=== PATIENT | male | born 1980 | race Caucasian/White ===

== ENCOUNTER 2016-12-25 15:47 | Emergency (ER) | payer OTHER ==
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
[2016-12-25 16:25] LABS: ABSOLUTE BASOPHIL COUNT 0.1 /CUMM (0.0-0.2); ABSOLUTE EOSINOPHIL COUNT 0.3 /CUMM (0.0-0.7); ABSOLUTE GRANULOCYTE CT 9.1 /CUMM (1.4-6.5); ABSOLUTE LYMPH COUNT 3.2 /CUMM (1.2-3.4); ABSOLUTE MONOCYTE COUNT 1.1 /CUMM (0.10-0.60); BASOPHIL % 0.4 % (0.0-2.0); GRANULOCYTE % 66.1 % (42.2-75.2); HEMATOCRIT 47.4 % (42-52); MEAN CORPUSCULAR HGB 30.5 PG (27.0-31.0); MEAN CORPUSCULAR HGB CONC 33.2 G/DL (33.0-37.0); MEAN CORPUSCULAR VOLUME 91.9 FL (80.0-94.0); MEAN PLATELET VOLUME 10.7 FL (7.4-10.4); PLATELET COUNT 198 /CUMM (130-400); RBC DISTRIBUTION WIDTH 13.7 % (11.5-14.5); RED BLOOD CELL CT 5.16 /CUMM (4.70-6.10); WHITE BLOOD CELL COUNT 13.8 /CUMM (4.8-10.8)
[2016-12-25 16:38] LABS: PT 16.6 SEC (9.4-12.5); PTT 43 SEC (25-37)
[2016-12-25] MEDS ORDERED: BACLOFEN20 M1 PO (16:40)
[2016-12-25] MEDS ORDERED: ATORVASTATIN CA20 M1 PO (16:40)
[2016-12-25] MEDS ORDERED: METOPROLOL TART25 M1 PO (16:41)
[2016-12-25] MEDS ORDERED: PANTOPRAZOLE SO40 M1 PO (16:41)
[2016-12-25] MEDS ORDERED: DANTROLENE SOD PO (16:41)
[2016-12-25] MEDS ORDERED: METAXALONE800 M1 PO (16:41)
[2016-12-25] MEDS ORDERED: DETROL LA2 M1 PO (16:42)
[2016-12-25] MEDS ORDERED: VENLAFAXINE HCL75 M1 PO (16:42)
[2016-12-25] MEDS ORDERED: MAGNESIUM400 M1 PO (16:43)
[2016-12-25] MEDS ORDERED: VITAMIN D2000 UNI1 PO (16:43)
[2016-12-25] MEDS ORDERED: NUCYNTA PO (16:43)
[2016-12-25] MEDS ORDERED: LYRICA200 M1 PO (16:44)
[2016-12-25] MEDS ORDERED: TYLENOL325 M1 PO (16:45)
[2016-12-25] MEDS ORDERED: XARELTO20 M2 PO (16:45)
[2016-12-25] MEDS ORDERED: CRANBERRY500 MG PO (16:45)
[2016-12-25] MEDS ORDERED: ENEMA133 M1 PR (16:46)
[2016-12-25] MEDS ORDERED: PROBIOTIC1 EACH PO (16:47)
[2016-12-25 17:42] VITALS: BP 103/61
== END 2016-12-25 18:00 ==
LOC: ERH 15:47
PROVIDERS: Emergency Medicine
DX: R19.5 Other fecal abnormalities (principal)

== ENCOUNTER 2017-01-19 20:59 | Inpatient (IN) | payer OTHER ==
[~2017-01-19] VITALS: Ht 172.7 cm; Wt 145.2 kg
[~2017-01-19 20:59] MED LIST: ATORVASTATIN CA20 M1 PO; BACLOFEN20 M1 PO; CRANBERRY500 MG PO; DANTROLENE SOD PO; DETROL LA2 M1 PO; ENEMA133 M1 PR; LYRICA200 M1 PO; MAGNESIUM400 M1 PO; METAXALONE800 M1 PO; METOPROLOL TART25 M1 PO; NUCYNTA PO; PANTOPRAZOLE SO40 M1 PO; PROBIOTIC1 EACH PO; TYLENOL325 M1 PO; VENLAFAXINE HCL75 M1 PO; VITAMIN D2000 UNI1 PO; XARELTO20 M2 PO
--- NOTE | 2017-01-19 21:06 | ED AMS/SEIZURE/WEAK/DIZZY ---
History of Present Illness General Chief Complaint: General Adult Stated Complaint: BIBA, GENERAL WEAKNESS Source: patient, family, old records, EMS Exam Limitations: no limitations Vital Signs & Intake/Output Vital Signs & Intake/Output Vital Signs Date Time Temp Pulse Resp B/P B/P Pulse O2 O2 Flow FiO2 Mean Ox Delivery Rate 01/19 2310 101.2 01/19 2225 101.2 95 16 103/67 95 Room Air 01/19 2215 99 01/19 2135 104.0 01/19 2107 104.0 96 16 114/69 95 Room Air ED Intake and Output 01/20 0000 01/19 1200 Intake Total Output Total 100 Balance -100 Output, Urine 100 Patient 320 lb Weight Weight Reported by Patient Measurement Method Allergies Coded Allergies: NSAIDS (Non-Steroidal Anti-Inflamma (CONTRAINDICATED ON XARELTO 12/25/16) bupivacaine (UNKNOWN 12/25/16) codeine (ITCHY 12/25/16) CODEINE-ITCHY Reconcile Medications Atorvastatin Calcium 20 MG TABLET 1 TAB PO DAILY HPL (Reported) Baclofen 20 MG TABLET 1 TAB PO TID MUSCLE RELAXER (Reported) Cholecalciferol (Vitamin D3) (Vitamin D3) 1,000 UNIT CAPSULE 2 TAB PO DAILY SUPPLEMENT (Reported) Cranberry Extract (Cranberry) (Unknown Strength) CAPSULE (Unknown Dose) UTI ( Reported) Dantrolene Sodium (Unknown Strength) CAPSULE (Unknown Dose) MUSCLE SPASMS ( Reported) Magnesium Hydroxide (Milk Of Magnesia) (Unknown Strength) ORAL.SUSP (Unknown Dose) PRN PRN CONSTIPATION (Reported) Magnesium Oxide (Magnesium) (Unknown Strength) CAPSULE (Unknown Dose) SUPPLEMENT (Reported) Metaxalone (Skelaxin) (Unknown Strength) TABLET (Unknown Dose) TID MUSCLE SPASMS (Reported) Metoprolol Tartrate (Unknown Strength) TABLET (Unknown Dose) HTN (Reported) Mirabegron (Myrbetriq) 50 MG TAB.ER.24H 1 TAB PO DAILY URINARY (Reported) Oxybutynin Chloride (Ditropan XL) (Unknown Strength) TAB.ER.24 (Unknown Dose) PO DAILY BLADDER (Reported) Pregabalin (Lyrica) (Unknown Strength) CAPSULE (Unknown Dose) PAIN (Reported) Rivaroxaban (Xarelto) 20 MG TABLET 1 TAB PO DAILY HX CLOTS (Reported) with food Saccharomyces Boulardii (Probiotic) (Unknown Strength) CAPSULE (Unknown Dose) SUPPLEMENT (Reported) Tapentadol HCl (Nucynta) 75 MG TABLET 1 TAB PO TID PAIN (Reported) Venlafaxine HCl (Venlafaxine HCl ER) 75 MG CAP.ER.24H 1 CAP PO DAILY MENTAL HEALTH (Reported) Triage Nurses Notes Reviewed? 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 Patient states that over the past day or so he is gradually become more weak. He reports he has noticed chills sweats and feels very cold. He denies any pain. He has a chronic indwelling suprapubic catheter. He reports that he took 2 Tylenol earlier in the day without any relief. He reports that he feels a little bit of dizziness with movement of the head. No coughing, shortness of breath, hemoptysis, excessive lower extremity edema, abdominal pain, back pain or any other associated symptoms. (FRANCESCO TORRES PA-C) Past History Travel History Traveled to [place] past 21 day No Medical History Any Pertinent Medical History? see below for history Neurological: tbi, paraplegia SPINAL ABSCESS EENT: NONE Cardiovascular: hypertension, hyperlipidemia Respiratory: NONE Gastrointestinal: GERD Hepatic: NONE Renal: INDWELLING SUPRAPUBIC APARICIO Musculoskeletal: PARALYSIS UMBILICUS DOWN Psychiatric: depression Endocrine: NONE Blood Disorders: DVT Surgical History Surgical History: non-contributory Psychosocial History What is your primary language Croatian Family History Hx Contributory? Yes (FRANCESCO TORRES PA-C) Review of Systems Review of Systems Constitutional: Reports: chills, diaphoresis, fever, weakness. EENTM: Reports: no symptoms. Respiratory: Reports: no symptoms. Cardiovascular: Reports: no symptoms. GI: Reports: no symptoms. Genitourinary: Reports: no symptoms. Musculoskeletal: Reports: no symptoms. Skin: Reports: no symptoms. Neurological/Psychological: Reports: no symptoms. Hematologic/Endocrine: Reports: no symptoms. Immunologic/Allergic: Reports: no symptoms. All Other Systems: Reviewed and Negative (BLACK PA-C,FRANCESCO) Physical Exam Physical Exam General Appearance: well developed/nourished, no apparent distress, alert, awake , obese Skin: intact, normal color, warm/dry Comments: General: Hemodynamically stable. Afebrile. Well-developed well-nourished person in no acute distress. Head: Atraumatic, normocephalic Eyes: EOMI bilaterally, PERRLA, conjunctiva are not injected, no discharge, no nystagmus, fundus grossly normal bilaterally Nose: Atraumatic, no rhinorrhea, mucosa is not erythematous, no epistaxis. Sinuses are non-tender Ears: TM pearly chau color bilaterally, external canal is clear, no discharge, hearing is normal Mouth: Appropriate dentition, no gingival bleeding, moist mucus membranes, no oral lesions, tonsils not erythematous or enlarged and free of exudate. Uvula rises midline. Neck: Supple, full active ROM, no lymphadenopathy, no midline tenderness to palpation, no thyromegaly, no tracheal deviation. Back: Non-tender, full active ROM, no scoliosis, no CVA tenderness Cardiovascular: regular rate and rhythm, no murmurs, rubs, or gallops. No JVD Respiratory: Chest is nontender. Regular respiratory rate and effort. No accessory muscle use. Lungs clear to auscultation bilaterally. Abdomen: Soft, non-tender, non-distended, no organomegaly. No rebound tenderness or guarding. Normoactive bowel sounds. Extremities: No edema. No gross deformities. No joint swelling. No calf swelling or tenderness. Patient is paralyzed from the umbilicus down. Full active and passive ROM of bilateral upper extremities. Strength 5/5 in upper and lower extremities. Peripheral pulses 2+ bilaterally, Patellar DTR 2+ Neuro: No confusion. Motor and sensory function is intact. Appropriate gait. Cerebellar function intact. Skin: Warm and dry. Appropriate turgor. No lesions or bruising. No appreciable rash on exposed skin. No evidence of cellulitis or pressure ulcers. Suprapubic catheter site does not show any signs of infection. No erythema discharge no pain with palpation. Core Measures ACS in differential dx? No CVA/TIA Diagnosis: No Severe Sepsis Present: No Septic Shock Present: No (BLACK PA-C,FRANCESCO) Progress Differential Diagnosis: anemia, dehydration, electrolyte imbalance, hypoglycemia , meningitis, pneumonia, UTI/pyelo, epidural abscess Plan of Care: Orders Procedure Date/time Status Patient Data 01/20 203 Active Add-on Test (ER Only) 01/19 2258 Active CULTURE,URINE 01/19 2130 Active Telemetry/Mechanical Facilities Technician 01/19 2123 Active D-DIMER 01/19 2123 Complete BLOOD CULTURE 01/19 2121 Active URINALYSIS 01/20 2120 Complete LACTIC ACID 01/20 2120 Complete C-REACTIVE PROTEIN 01/20 2120 Complete COMPREHENSIVE METABOLIC PANEL 01/20 2120 Complete CBC WITHOUT DIFFERENTIAL 01/20 2120 Complete Laboratory Tests 01/20/17 0020: Lactic Acid Cancelled 01/19/172224: Anion Gap 12, Estimated GFR > 60, BUN/Creatinine Ratio 14.0, Glucose 112 H, Lactic Acid 1.1, Calcium 9.0, Total Bilirubin 1.1, AST 15 L, ALT 33, Alkaline Phosphatase 85, C-Reactive Prot, Quant > 9.0 H, Total Protein 6.3, Albumin 3.8, Globulin 2.5, Albumin/Globulin Ratio 1.5, D-Dimer High Sensitivty 360 H, CBC w Diff MAN DIFF ORDERED, RBC 5.16, MCV 90.2, MCH 30.1, RDW 13.7, MPV 10.4, Gran % 84.1 H, Lymphocytes % 9.0 L, Monocytes % 6.6, Eosinophils % 0.1, Basophils % 0.2, Absolute Granulocytes 19.4 H, Segmented Neutrophils 90 H, Band Neutrophils 1, Absolute Lymphocytes 2.1, Lymphocytes 7 L, Monocytes 2, Absolute Monocytes 1.5 H, Absolute Eosinophils 0, Absolute Basophils 0.1, Platelet Estimate ADEQUATE, Normocytic RBCs VERIFIED, Normochromic RBCs VERIFIED, PUBS MCHC 33.3, Fld Total RBCs Counted 100 01/19/172129: Urinalysis MANY H, Urine Color YEL, Urine Clarity HAZY H, Urine pH 6.0, Ur Specific [place] 1.020, Urine Protein 100 H, Urine Ketones NEG, Urine Nitrite NEG, Urine Bilirubin NEG, Urine Urobilinogen 0.2, Ur Leukocyte Esterase LARGE H , Ur Microscopic SEDIMENT EXAMINED, Urine RBC 25-50 H, Urine WBC > 75 H, Ur Epithelial Cells FEW, Urine Bacteria MANY H, Urine Hemoglobin LARGE H, Urine Glucose NEG Microbiology 01/19 2255 BLOOD: Blood Culture - RECD 01/19 2225 BLOOD: Blood Culture - RECD 01/19 2130 URINE ROUT: Urine Culture - RECD 9 PM: Patient seen and evaluated. He currently has fever of 104. He'll be given a dose of IV Tylenol and a bolus of normal saline. He'll need a workup for fever of unknown origin with possible sepsis. 11 PM: Patient's fevers down to 101. He has a white count of 23 and urine is showing signs of infection however he does have a chronic superpubic catheter. No signs of pneumonia. No signs of skin infection. Lactate is not elevated. Blood pressure has remained within normal limits. He'll be treated empirically with ceftriaxone. Previous urine cultures have shown susceptibility to ceftriaxone. Patient will require admission for IV antibiotics and to rule out epidural abscess. Hospitalist is requesting patient have a contrast CT of the spine to rule out abscess before he is admitted. 1:45 AM: CT scan of the lumbar spine with contrast is negative for any signs of epidural abscess. Radiologist recommends follow-up MRI if clinical concern. Hospitalist paged. Reviewed all results of today's visit with patient. Patient reports feeling better. He has maintained a low-grade fever but blood pressure is stable. Patient will be admitted to [facility] for IV antibiotics and IV fluids. (BRIAN WALDROP,FRANCESCO) Diagnostic Imaging: Viewed by Me: Radiology Read, CT Scan. Discussed w/RAD: Radiology Read, CT Scan. Initial ED EKG: none Hand-Off Endorsed To: BERNARDINO RUBIO DO Endorsed Time: 145 Pending: other (admission ) Comments: PATIENT: REJI CAMPBELL PRESENT AGE: 36 PATIENT ACCOUNT NO: [id number] : 82 LOCATION: [facility] ORDERING PHYSICIAN: FRANCESCO TORRES PA-C SERVICE DATE: 01/19/17 EXAM TYPE: RAD - XRY-PORTABLE CHEST XRAY EXAMINATION: XR PORTABLE CHEST CLINICAL INFORMATION: Fever and weakness COMPARISON: None TECHNIQUE: Portable frontal view of the chest was obtained. FINDINGS: Heart size and pulmonary vascularity is within normal limits. The lungs are mildly hypoexpanded with slight elevation of the right diaphragm. No focal consolidation or atelectasis is appreciated. There is no pneumothorax or pleural effusion. No acute bony abnormality is seen. IMPRESSION: Hypoexpanded but clear lungs with no focal findings. DICTATED BY: CLEM MANUEL MD DATE/TIME DICTATED:01/19/172248 LEAD PRODUCER:MINA DATE/TIME TRANSCRIBED:01/19/172248 CONFIDENTIAL, DO NOT COPY WITHOUT APPROPRIATE AUTHORIZATION. <Electronically signed in Other Vendor System> SIGNED BY: CLEM MANUEL MD 01/19 5163 PATIENT: REJI CAMPBELL PRESENT AGE: 36 PATIENT ACCOUNT NO: [id number] : 82 LOCATION: [facility] ORDERING PHYSICIAN: FRANCESCO TORRES PA-C SERVICE DATE: 01/19/17 EXAM TYPE: CAT - CT LUMB SPINE W IV CONTRAST EXAMINATION: CT LUMBAR SPINE WITH CONTRAST CLINICAL INFORMATION: Fever. Elevated white blood cell count. History of epidural abscess. COMPARISON: None TECHNIQUE: Multidetector volumetric imaging was obtained through the lumbar spine following the intravenous administration of 95 Optiray 320 contrast material. Multiplanar reformatted images in coronal and sagittal orientations were submitted. DLP: 1694 mGy-cm FINDINGS: No fracture or malalignment. Vertebral body heights are normal. No spondylolisthesis. There is mild degenerative disc disease at the thoracolumbar junction which is characterized by loss of vertebral disc height, endplate osteophytes, and endplate irregularity. Moderate facet arthropathy is present at L3-4 bilaterally and at L4-5 on the left. No acute osseous abnormalities are identified. Imaged portions of the SI joints are unremarkable. No osseous lesions. Soft tissues immediately adjacent lumbar spine are unremarkable. No adjacent inflammatory changes are identified. Multiple hyperdense foci in both kidneys other correspond to early excretion of contrast material or renal calculi. No suspicious lesions are identified. Calcific atherosclerosis is present in the right common iliac and internal iliac artery. There is a small amount of nonspecific fat stranding in the retroperitoneal fascial planes, most notably anterior to the psoas muscles. The bladder wall is thickened, likely due in large part to the presence of the suprapubic catheter. There is mild shunting retroperitoneal fat stranding. There is mild enhancement in the epidural region within the lower lumbar spine in a pattern most compatible with normal enhancement of the epidural venous plexus. Sensitivity for abscesses is limited. No specific findings of epidural abscesses are identified. Central canal appears relatively patent without evidence of central canal stenoses. No appreciable neural foraminal impingement in the lumbar spine. A left foraminal osteophyte at T11-T12 produces at least mild to moderate narrowing of the left neural foramen. IMPRESSION: No specific findings of epidural abscess the lumbar spine, though CT is limited in sensitivity. Consider correlation with MRI if there is persistent clinical concern. Mild multilevel degenerative disc disease in the lumbar spine with more moderate facet arthropathy at L3-L4 and L4-L5. Mild fat stranding in the retroperitoneal fascial planes in the lower abdomen and pelvis. The bladder is inflamed with associated wall thickening, most likely related to the suprapubic catheter. Superimposed cystitis is possible. Otherwise, no clear cause of the retroperitoneal stranding are identified on these images. DICTATED BY: MEGAN VELEZ MD DATE/TIME DICTATED:01/20/17117 LEAD PRODUCER:MINA DATE/TIME TRANSCRIBED:01/20/17117 CONFIDENTIAL, DO NOT COPY WITHOUT APPROPRIATE AUTHORIZATION. (FRANCESCO TORRES PA-C) Departure Departure Disposition: STILL A PATIENT Condition: Stable Clinical Impression Primary Impression: UTI (urinary tract infection) due to urinary indwelling catheter Qualifiers: Indwelling urinary catheter type: indwelling urethral catheter Encounter type: initial encounter Qualified Codes: T83.511A - Infection and inflammatory reaction due to indwelling urethral catheter, initial encounter; N39.0 - Urinary tract infection, site not specified Referrals: BENSON HENDRIX MD (PCP/Family) Departure Forms: Customer Survey General Discharge Information Admission Note Spoke With: KWABENA DERAS MD Documentation of Exam: Documentation of any treatments & extenuating circumstances including Concerns Regarding Discharge (functional status, medication knowledge or non-compliance, living conditions, etc.) that warrant an admission rather than observation: [ Patient will require IV antibiotics, IV fluids, serial labs, evaluation for epidural abscess, follow-up on cultures, monitoring of vital signs] (FRANCESCO TORRES PA-C) PA/PET CARETAKER Co-Sign Statement Statement: ED Attending supervision documentation- [] I saw and evaluated the patient. I have also reviewed all the pertinent lab results and diagnostic results. I agree with the findings and the plan of care as documented in the PA's/PET CARETAKER's documentation. [X] I have reviewed the ED Record and agree with the PA's/PET CARETAKER's documentation. [] Additions or exceptions (if any) to the PAs/PET CARETAKER's note and plan are summarized below: [] (BERNARDINO RUBIO DO)
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
--- NOTE | 2017-01-19 22:31 | NUR ---
LABS DRAWN AND SENT BY THIS [facility]ST. BLUE,SST,LAV,WAITE, AND 1 BOTTLE OF 1ST SET OF CULTURES, PT A VERY DIFFICULT STICK
[2017-01-19 22:34] LABS: ABSOLUTE BASOPHIL COUNT 0.1 /CUMM (0.0-0.2); ABSOLUTE EOSINOPHIL COUNT 0 /CUMM (0.0-0.7); ABSOLUTE GRANULOCYTE CT 19.4 /CUMM (1.4-6.5); ABSOLUTE LYMPH COUNT 2.1 /CUMM (1.2-3.4); ABSOLUTE MONOCYTE COUNT 1.5 /CUMM (0.10-0.60); BASOPHIL % 0.2 % (0.0-2.0); EOSINOPHIL % 0.1 % (0-5); GRANULOCYTE % 84.1 % (42.2-75.2); HEMATOCRIT 46.6 % (42-52); MEAN CORPUSCULAR HGB 30.1 PG (27.0-31.0); MEAN CORPUSCULAR HGB CONC 33.3 G/DL (33.0-37.0); MEAN CORPUSCULAR VOLUME 90.2 FL (80.0-94.0); MEAN PLATELET VOLUME 10.4 FL (7.4-10.4); PLATELET COUNT 164 /CUMM (130-400); RBC DISTRIBUTION WIDTH 13.7 % (11.5-14.5); RED BLOOD CELL CT 5.16 /CUMM (4.70-6.10)
[2017-01-19] MEDS ORDERED: DITROPAN XL5 M1 PO (22:40)
[2017-01-19] MEDS ORDERED: VITAMIN D31000 UNI1 PO (22:40)
[2017-01-19] MEDS ORDERED: DANTROLENE SOD PO (22:41)
[2017-01-19] MEDS ORDERED: ATORVASTATIN CA20 M1 PO (22:41)
[2017-01-19] MEDS ORDERED: LYRICA200 M1 PO (22:42)
[2017-01-19] MEDS ORDERED: SKELAXIN800 M1 PO (22:42)
[2017-01-19] MEDS ORDERED: MYRBETRIQ50 M1 PO (22:42)
[2017-01-19] MEDS ORDERED: METOPROLOL TART25 M1 PO (22:43)
[2017-01-19] MEDS ORDERED: CRANBERRY200 MG PO (22:43)
[2017-01-19] MEDS ORDERED: PROBIOTIC250 MG PO (22:43)
[2017-01-19] MEDS ORDERED: MAGNESIUM400 M1 PO (22:44)
[2017-01-19] MEDS ORDERED: MILK OF MA400 MG/52 PO (22:44)
[2017-01-19] MEDS ORDERED: VENLAFAXINE HCL75 M1 PO (22:44)
[2017-01-19] MEDS ORDERED: NUCYNTA PO (22:44)
[2017-01-19] MEDS ORDERED: XARELTO20 M2 PO (22:45)
--- NOTE | 2017-01-19 22:56 | RADIOLOGY REPORT ---
EXAMINATION: XR PORTABLE CHEST CLINICAL INFORMATION: Fever and weakness COMPARISON: None TECHNIQUE: Portable frontal view of the chest was obtained. FINDINGS: Heart size and pulmonary vascularity is within normal limits. The lungs are mildly hypoexpanded with slight elevation of the right diaphragm. No focal consolidation or atelectasis is appreciated. There is no pneumothorax or pleural effusion. No acute bony abnormality is seen. IMPRESSION: Hypoexpanded but clear lungs with no focal findings.
--- NOTE | 2017-01-19 23:02 | NUR ---
2ND SET CULTURES ALONG WITH EXTRA RAINBOW (SST/LAV/BLUE/WAITE/PINK). LIGHTS LOW AND DOOR CLOSED AT PT REQUEST.
--- NOTE | 2017-01-19 23:10 | NUR ---
REPORT GIVEN TO CLOTH WEIGHER, ROCEPHIN UP, PT COMFORTABLE.
--- NOTE | 2017-01-19 23:12 | NUR ---
REPORT RECIEVED FROM JOSE G MUNIZ. PRIMARY CARE ASSUMED. PT REASSESSED, CLINICAL STATUS UNCHANGED.
--- NOTE | 2017-01-19 23:53 | NUR ---
PT REQUESTING WATER, INFORMED PT WILL NEED TO WAIT FOR CAT SCAN RESULTS PRIOR TO DRINKING/EATING
--- NOTE | 2017-01-20 00:42 | NUR ---
PT TO CT SCAN VIA STRETCHER
--- NOTE | 2017-01-20 01:05 | NUR ---
PT FROM CAT SCAN VIA STRETCHER
--- NOTE | 2017-01-20 01:37 | CT SCAN REPORT ---
EXAMINATION: CT LUMBAR SPINE WITH CONTRAST CLINICAL INFORMATION: Fever. Elevated white blood cell count. History of epidural abscess. COMPARISON: None TECHNIQUE: Multidetector volumetric imaging was obtained through the lumbar spine following the intravenous administration of 95 Optiray 320 contrast material. Multiplanar reformatted images in coronal and sagittal orientations were submitted. DLP: 1694 mGy-cm FINDINGS: No fracture or malalignment. Vertebral body heights are normal. No spondylolisthesis. There is mild degenerative disc disease at the thoracolumbar junction which is characterized by loss of vertebral disc height, endplate osteophytes, and endplate irregularity. Moderate facet arthropathy is present at L3-4 bilaterally and at L4-5 on the left. No acute osseous abnormalities are identified. Imaged portions of the SI joints are unremarkable. No osseous lesions. Soft tissues immediately adjacent lumbar spine are unremarkable. No adjacent inflammatory changes are identified. Multiple hyperdense foci in both kidneys other correspond to early excretion of contrast material or renal calculi. No suspicious lesions are identified. Calcific atherosclerosis is present in the right common iliac and internal iliac artery. There is a small amount of nonspecific fat stranding in the retroperitoneal fascial planes, most notably anterior to the psoas muscles. The bladder wall is thickened, likely due in large part to the presence of the suprapubic catheter. There is mild shunting retroperitoneal fat stranding. There is mild enhancement in the epidural region within the lower lumbar spine in a pattern most compatible with normal enhancement of the epidural venous plexus. Sensitivity for abscesses is limited. No specific findings of epidural abscesses are identified. Central canal appears relatively patent without evidence of central canal stenoses. No appreciable neural foraminal impingement in the lumbar spine. A left foraminal osteophyte at T11-T12 produces at least mild to moderate narrowing of the left neural foramen. IMPRESSION: No specific findings of epidural abscess the lumbar spine, though CT is limited in sensitivity. Consider correlation with MRI if there is persistent clinical concern. Mild multilevel degenerative disc disease in the lumbar spine with more moderate facet arthropathy at L3-L4 and L4-L5. Mild fat stranding in the retroperitoneal fascial planes in the lower abdomen and pelvis. The bladder is inflamed with associated wall thickening, most likely related to the suprapubic catheter. Superimposed cystitis is possible. Otherwise, no clear cause of the retroperitoneal stranding are identified on these images.
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
--- NOTE | 2017-01-20 02:27 | NUR ---
HOUSE STAFF AT BEDSIDE FOR PT EVALUATION
--- NOTE | 2017-01-20 03:08 | NUR ---
PTS HAS BED 230-2
--- NOTE | 2017-01-20 03:35 | NUR ---
REPORT GIVEN TO [address]SE [address]
[2017-01-20 04:20] VITALS: BP 112/68
--- NOTE | 2017-01-20 05:37 | Admission Certification ---
Admission Certification Certification Statement - As attending physician, I certify that at the time of - admission, based on clinical presentation, severity of - symptoms, need for further diagnostic testing and - therapeutic interventions, and risk of adverse outcomes - without in-hospital treatment, in my clinical assessment, - this patient requires an acute hospital stay for a minimum - of two nights or longer. I have also considered psychsocial - factors such as support system, advanced age, financial - issues, cognitive issues, and failed out-patient treatments, - past re-admission history, safety of patient, and lack of - compliance as applicable. Specific rationale supporting this admission is: Sepsis, acute complicated UTI in the setting of suprapubic catheter.
--- NOTE | 2017-01-20 06:02 | NUR ---
PT A&Ox3, TEMP 101.1, ADMINISTERED IV TYLENOL. OTHER VSS. PARALIZED UMBILICUS DOWN AND LIMITED MOBILITY OF LUE. REPORTS PAIN 7/10 NECK,SHOULDERS AND ARM, REFUSED PAIN MEDICATIONS S/P TYLENOL. SKIN INTACT. SUPRA PUBIC TUBE PLACED FEW MONTHS AGO R/T CHRONIC UTI's. ORIENTED TO FLOOR. CALL GRAY IN REACH. WILL CONTINUE TO MONITOR THIS SHIFT.
[2017-01-20 06:28] VITALS: BP 110/70
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
[2017-01-20 08:34] LABS: ABSOLUTE BASOPHIL COUNT 0 /CUMM (0.0-0.2); ABSOLUTE EOSINOPHIL COUNT 0 /CUMM (0.0-0.7); ABSOLUTE GRANULOCYTE CT 13.8 /CUMM (1.4-6.5); ABSOLUTE LYMPH COUNT 1.7 /CUMM (1.2-3.4); ABSOLUTE MONOCYTE COUNT 1.3 /CUMM (0.10-0.60); BASOPHIL % 0.2 % (0.0-2.0); EOSINOPHIL % 0.1 % (0-5); GRANULOCYTE % 82.1 % (42.2-75.2); HEMATOCRIT 42.5 % (42-52); MEAN CORPUSCULAR HGB 30.5 PG (27.0-31.0); MEAN CORPUSCULAR HGB CONC 33.8 G/DL (33.0-37.0); MEAN CORPUSCULAR VOLUME 90.2 FL (80.0-94.0); MEAN PLATELET VOLUME 10.9 FL (7.4-10.4); PLATELET COUNT 138 /CUMM (130-400); RBC DISTRIBUTION WIDTH 13.4 % (11.5-14.5); RED BLOOD CELL CT 4.71 /CUMM (4.70-6.10); WHITE BLOOD CELL COUNT 16.8 /CUMM (4.8-10.8)
--- NOTE | 2017-01-20 10:09 | NUR ---
PHYSICAL THERAPY: Pt WAS APPROACHED FOR PT EVAL TODAY. HE REPORTED THAT HE HAS AN AIDE AT HOME THAT ASSISTS HIM WELL HIS FATHER WHEN THE AIDE IS NOT PRESENT. TO GET IN/OUT OF BED A MECHANICAL LIFT IS USED. WHEN ASKED ABOUT RUE WEAKNESS, HE FEELS THIS IS THE SAME BEFORE AND DENIED THE NEED FOR AN OT CONSULT. Pt APPEARS TO BE AT BASELINE AND IS NOT APPROPRIATE FOR SKILLED PT AT THIS TIME. THANK YOU.
[2017-01-20] MEDS ORDERED: LYRICA75 M1 PO (10:11)
[2017-01-20] MEDS ORDERED: MONTELUKAST SOD10 M1 PO (10:12)
--- NOTE | 2017-01-20 13:35 | CT SCAN REPORT ---
EXAMINATION: CT NECK WITH CONTRAST CLINICAL INFORMATION: 36-year-old man with neck pain and history of abscess. COMPARISON: None TECHNIQUE: Helical CT images were obtained through the neck following intravenous administration of 95 mL of Optiray 320. DLP: 739 mGy-cm FINDINGS: There have been prior bitemporal craniotomies. There is nonspecific hypodensity in both inferior frontal and the left anterior temporal lobes with ex vacuo dilation of the lateral ventricles, left greater than right. The parotid glands are normal in appearance. There has been fatty replacement of the submandibular glands. A 5 mm hypodensity is noted in the left lobe of the thyroid gland and there is a nearby coarse calcification. No pathologically enlarged or abnormally enhancing lymph nodes are seen in the neck. The airway itself, including the nasopharynx, oropharynx, hypopharynx, and larynx is widely patent. No retropharyngeal or drainable fluid collection is noted. The parapharyngeal fat is preserved. There has been wide posterior spinal decompression extending from C2 through T2. Limited assessment of the lung apices is notable only for subsegmental atelectasis at the right apex. IMPRESSION: No drainable fluid collection is seen in the neck. Chronic intracranial changes as described.
[2017-01-20 14:46] VITALS: BP 114/66
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
[2017-01-20 22:17] VITALS: BP 130/80
[2017-01-21 06:36] VITALS: BP 112/60
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
[2017-01-21 09:30] LABS: ABSOLUTE BASOPHIL COUNT 0 /CUMM (0.0-0.2); ABSOLUTE EOSINOPHIL COUNT 0.1 /CUMM (0.0-0.7); ABSOLUTE GRANULOCYTE CT 7.7 /CUMM (1.4-6.5); ABSOLUTE LYMPH COUNT 1.8 /CUMM (1.2-3.4); ABSOLUTE MONOCYTE COUNT 1.3 /CUMM (0.10-0.60); BASOPHIL % 0.1 % (0.0-2.0); EOSINOPHIL % 0.7 % (0-5); GRANULOCYTE % 70.3 % (42.2-75.2); HEMATOCRIT 41.8 % (42-52); MEAN CORPUSCULAR HGB 30.4 PG (27.0-31.0); MEAN CORPUSCULAR HGB CONC 33.3 G/DL (33.0-37.0); MEAN CORPUSCULAR VOLUME 91.1 FL (80.0-94.0); MEAN PLATELET VOLUME 10.5 FL (7.4-10.4); PLATELET COUNT 133 /CUMM (130-400); RBC DISTRIBUTION WIDTH 13.7 % (11.5-14.5); RED BLOOD CELL CT 4.58 /CUMM (4.70-6.10); WHITE BLOOD CELL COUNT 10.9 /CUMM (4.8-10.8)
--- NOTE | 2017-01-21 10:24 | NUR ---
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
[2017-01-21 14:29] VITALS: BP 122/70
--- NOTE | 2017-01-21 15:53 | CT SCAN REPORT ---
EXAMINATION: CT ABDOMEN AND PELVIS WITHOUT CONTRAST CLINICAL INFORMATION: Fever, UTI, bacteremia. Rule out pyelonephritis versus cystitis versus nephrolithiasis. COMPARISON: CT scan of the lumbar spine dated 01/20/2017. TECHNIQUE: Multidetector volumetric imaging was performed from the superior aspect of the liver through the pubic symphysis. Sagittal and coronal reformatted images were obtained on the technologist workstation. DLP: 1442.26 mGy-cm. FINDINGS: LUNG BASES: Bibasilar areas of subsegmental atelectasis are seen. LIVER, GALLBLADDER, AND BILIARY TREE: The liver is normal in size, shape, and attenuation. No focal hepatic lesion on noncontrast imaging. No biliary ductal dilatation is present. The gallbladder is unremarkable with no evidence of radiopaque gallstones, gallbladder wall thickening, or obvious pericholecystic inflammatory changes. PANCREAS, SPLEEN, ADRENAL GLANDS: Unremarkable on noncontrast imaging. KIDNEYS AND URETERS: The kidneys are normal in size, shape, and attenuation. There are bilateral nonobstructing renal calculi (4 on the right side and 2 on the left side), measuring up to 0.7 x 0.4 cm in the upper pole of the right kidney and 0.4 x 0.2 cm in the mid left kidney. These are too small to accurately characterize but have attenuation values ranging up to 352 Hounsfield units, suggesting uric acid stones. No ureteral calculi are seen. No hydronephrosis, hydroureter seen. No significant perinephric stranding. There is, however, subtle retroperitoneal stranding and edema seen in the pelvis and around the bladder, similar to previous CT scan from the lumbar spine. BLADDER: The bladder is decompressed by a suprapubic catheter and therefore suboptimally assessed. Small locules of air within the bladder is noted. Mild perivesicle fat stranding is seen. Small amount of presacral edema is also noted. GASTROINTESTINAL TRACT: The small and large bowel are unremarkable. The appendix is not visualized. There may be a calcified fecalith in region of the appendiceal orifice. ABDOMINAL WALL: There is a small fat-containing umbilical hernia. Suprapubic catheter is seen in the lower pelvis with mild surrounding fat stranding. LYMPH NODES, VASCULAR: No significant abdominal or pelvic adenopathy is seen. Mild atherosclerotic calcification of the aortic bifurcation and right iliac artery is seen. An IVC filter is in place with tip seen at the L2-L3 level. PELVIC VISCERA: Unremarkable. OSSEOUS STRUCTURES: Unremarkable. IMPRESSION: 1. As seen on prior CT scan of the lumbar spine, there is some nonspecific stranding and edema seen in the pelvic retroperitoneum, extending into the perivesical and presacral space. This is of uncertain etiology and may be related to cystitis. Bladder overall suboptimally assessed due to decompression by a suprapubic catheter. Close clinical correlation is requested. 2. Bilateral nonobstructing renal calculi are seen, most likely representing uric acid stones. No evidence of obstructive uropathy. 3. Low positioning of IVC filter with tip at the L2-L3 level.
[2017-01-21 21:43] VITALS: BP 120/77
[2017-01-22 06:50] VITALS: BP 110/70
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
[2017-01-22 08:57] LABS: ABSOLUTE BASOPHIL COUNT 0 /CUMM (0.0-0.2); ABSOLUTE EOSINOPHIL COUNT 0.2 /CUMM (0.0-0.7); ABSOLUTE GRANULOCYTE CT 5.7 /CUMM (1.4-6.5); ABSOLUTE LYMPH COUNT 1.7 /CUMM (1.2-3.4); ABSOLUTE MONOCYTE COUNT 1.2 /CUMM (0.10-0.60); BASOPHIL % 0.4 % (0.0-2.0); EOSINOPHIL % 2.7 % (0-5); GRANULOCYTE % 64.3 % (42.2-75.2); MEAN CORPUSCULAR HGB 30.3 PG (27.0-31.0); MEAN CORPUSCULAR HGB CONC 33.7 G/DL (33.0-37.0); MEAN PLATELET VOLUME 10.2 FL (7.4-10.4); PLATELET COUNT 159 /CUMM (130-400); RBC DISTRIBUTION WIDTH 13.3 % (11.5-14.5); RED BLOOD CELL CT 4.55 /CUMM (4.70-6.10); WHITE BLOOD CELL COUNT 8.9 /CUMM (4.8-10.8)
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
[2017-01-22 14:22] VITALS: BP 120/68
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
[2017-01-22 22:42] VITALS: BP 116/70
[2017-01-23 06:30] VITALS: BP 108/70
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
[2017-01-23 09:00] LABS: ABSOLUTE BASOPHIL COUNT 0 /CUMM (0.0-0.2); ABSOLUTE EOSINOPHIL COUNT 0.3 /CUMM (0.0-0.7); ABSOLUTE GRANULOCYTE CT 6.1 /CUMM (1.4-6.5); ABSOLUTE LYMPH COUNT 1.9 /CUMM (1.2-3.4); ABSOLUTE MONOCYTE COUNT 1.1 /CUMM (0.10-0.60); BASOPHIL % 0.4 % (0.0-2.0); EOSINOPHIL % 3.3 % (0-5); GRANULOCYTE % 64.3 % (42.2-75.2); HEMATOCRIT 42.7 % (42-52); MEAN CORPUSCULAR HGB 29.9 PG (27.0-31.0); MEAN CORPUSCULAR VOLUME 90.4 FL (80.0-94.0); MEAN PLATELET VOLUME 9.8 FL (7.4-10.4); PLATELET COUNT 180 /CUMM (130-400); RBC DISTRIBUTION WIDTH 13.5 % (11.5-14.5); RED BLOOD CELL CT 4.73 /CUMM (4.70-6.10); WHITE BLOOD CELL COUNT 9.5 /CUMM (4.8-10.8)
[2017-01-23 10:01] VITALS: BP 108/70
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
[2017-01-23] MEDS ORDERED: CIPRO500 M1 PO ×2 (13:19→15:16)
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
== END 2017-01-23 18:43 | disposition home health service (06) | DRG 466 ==
LOC: ERH 20:59 → 2NA 01-20 02:34 → ERHI 01-20 02:34 → ENRESERV 01-20 03:07 → 2NA 01-20 04:04
PROVIDERS: Internal Medicine; Physician Assistant Medical; Student in an Organized Health Care Education/Training Program; ADMIT Student in an Organized Health Care Education/Training Program
DX: T83.511A Infection and inflammatory reaction due to indwelling urethral catheter, initial encounter (principal); A41.59 Other Gram-negative sepsis; Z87.820 Personal history of traumatic brain injury; G82.20 Paraplegia, unspecified; E66.9 Obesity, unspecified; Z68.42 Body mass index [BMI] 45.0-49.9, adult; Z86.718 Personal history of other venous thrombosis and embolism; I10 Essential (primary) hypertension; E78.5 Hyperlipidemia, unspecified; K21.9 Gastro-esophageal reflux disease without esophagitis; M54.2 Cervicalgia; K59.00 Constipation, unspecified; Z79.01 Long term (current) use of anticoagulants; N20.0 Calculus of kidney; N31.9 Neuromuscular dysfunction of bladder, unspecified; M51.36 Other intervertebral disc degeneration, lumbar region; D64.9 Anemia, unspecified
CPT/HCPCS: 2NASP; 36415; 74176; 81001; 82436; 87040; 87086; 93005; 93010; 96361; 96374; 96375; J0131; J0696; J3490

== ENCOUNTER 2017-12-11 04:12 | Inpatient (IN) | payer OTHER ==
[~2017-12-11] VITALS: Ht 172.7 cm; Wt 132.0 kg
[~2017-12-11 04:12] MED LIST changes: +CIPRO500 M1 PO; +COLACE100 M1 PO; +CRANBERRY200 MG PO; +DITROPAN XL5 M1 PO; +HIPREX1 GM PO; +LYRICA75 M1 PO; +MILK OF MA400 MG/52 PO; +MONTELUKAST SOD10 M1 PO; +MOVANTIK25 M1; +MYRBETRIQ50 M1 PO; +PROBIOTIC250 MG PO; +SKELAXIN800 M1 PO; +VITAMIN D31000 UNI1 PO
[2017-12-11 08:15] LABS: PT 15.8 SEC (9.4-12.5); PTT 32 SEC (25-37)
--- NOTE | 2017-12-11 10:03 | Operative Report ---
Operative/Inv Procedure Report Surgery Date: 12/11/17 Name of Procedure: Laparoscopic Sleeve Gastrectomy Pre-Operative Diagnosis: Morbid Obesity BMI 50, ROXANNE, HTN Post-Operative Diagnosis: Same Estimated Blood Loss: less than 50ml Surgeon/Front Edger: Carlitos Casas DO Anesthesia: general endotracheal tube IV Fluids: 800 cc Drains: None Specimens: Stomach Complications: None Condition: Stable Operative Indication: This is a 37-year-old male that presented to the office for workup for bariatric surgery. After appropriate workup was completed I discussed with the patient the band, the sleeve, and the gastric bypass. The patient chose to undergo a sleeve gastrectomy. All risks including but not limited to bleeding, infection, leak, stricture, injury to surrounding bowel/esophagus/stomach/liver/spleen, long-term reflux, DVT/PE, and mortality of 07/999 patients were discussed in detail. They're expecting to the patient that given his paraplegia his risk of blood clots and some other comorbidities are slightly higher. The patient understood everything and decided to proceed. Operative/Procedure Note Note: The patient was brought to the operating room and placed on the operating room table in supine position. Venodyne stockings were placed and adequate general endotracheal anesthesia was obtained. The patient was prepped and draped in standard surgical fashion. Began the procedure by making a 2 cm transverse incision supraumbilically and slightly to the left of the midline. Then using a 12 mm clear Visiport and a 10 mm 0 laparoscope, the abdominal cavity was accessed. Great care was taken to go through the anterior rectus sheath, the posterior rectus sheath, and through the peritoneum. Once we entered the peritoneum the abdominal cavity was insufflated to 15 mmHg. Upon initial examination no obvious gross pathology was seen. Accessory trocars were placed, 5 mm in the epigastrium for the Karmen liver retractor. The retractor was inserted and the liver was retracted anteriorly exposing the hiatus, no hiatal hernia was seen. 5 mm ports were placed in the right and left upper quadrant, a 5 mm left lateral port, and a 15 mm right lateral port. Began the procedure by mobilizing the greater curvature of the stomach approximately 7 cm from the pylorus. Once the retrogastric space was reached the whole greater curvature was mobilized maintaining hemostasis using Harmonic scalpel. Full hiatal dissection was performed, no hiatal hernia was seen. Posterior adhesions were taken down using Harmonic scalpel as well. Once the stomach was adequately mobilized a 38 [place] bougie was inserted and placed along the lesser curvature of the stomach. Once the bougie was in the appropriate position we began creating our sleeve, two 60 mm black staple loads with seamguard followed by two 60 mm purple staple loads with seamguard as well. Great care was taken to leave ample room at the incisura angularis, to prevent any twisting or kinking of the sleeve, to stay lateral to the esophagogastric fat pad, and to do a full fundal excision. At the completion of the staple line the staple line was examined, it appeared intact and no obvious bleeding was noted. The bougie was removed, the sleeve was lying nicely without any twisting or kinking. The resected stomach was removed through the right lateral port site. The port and the left upper quadrant were irrigated until clear. All ports were removed under direct visualization no obvious bleeding was noted. The 15 mm port site fascia was closed using 0 Vicryl suture. The skin was closed using 4-0 Monocryl. Steri- Strips and dressings were placed. The patient was successfully extubated and transferred to the recovery room in stable condition. The patient tolerated the procedure well with no complications. Findings: No hiatal hernia, 38 Fr bougie CC: Alexis KNIGHT,Calli
[2017-12-11 12:10] VITALS: BP 122/70
--- NOTE | 2017-12-11 12:18 | Surg Short-stay <48hrs Dis Sum ---
Visit Information Visit Dates Admission Date: 12/11/17 Discharge Date: 12/13/17 Surgical Short Stay DC Summary Admission Diagnosis: Morbid Obesity (BMI 50), ROXANNE, HTN Final Diagnosis: same as above, s/p Surgery Date: 12/11/17 Name of Procedure: Laparoscopic Sleeve Gastrectomy Procedure(s): Surgery Date: 12/11/17 Name of Procedure: Laparoscopic Sleeve Gastrectomy Summary/Significant Findings: Electively scheduled laparoscopic sleeve gastrectomy on 12/11/17 by , for history of morbid obesity (BMI 50), ROXANNE, and hypertension. Started on stage 1 bariatric diet post-operatively. Upper gi study negative for leak / obstruction. Pain control transitioned from iv to oral medication as able. Xeralto held pre-operatively, and restarted post-op day#2. Home health services at baseline. Condition at Discharge: stable Discharge Disposition: home or self care Discharge instructions provided to patient/family: Yes Post discharge follow-up plan: one week follow up appointment with Copies to: Alexis KNIGHT,Calli
--- NOTE | 2017-12-11 12:22 | Patient Discharge Instructions ---
Discharge Instructions General Discharge Information You were seen/treated for: Morbid Obesity (BMI 50), ROXANNE, HTN You had these procedures: Surgery Date: 12/11/17 Name of Procedure: Laparoscopic Sleeve Gastrectomy Watch for these problems: fever>101.3, increased pain, redness/swelling/drainage, dizziness, shortness of breath, chest pains No bath, but you may shower: Yes Other wound care: ok to remove outer dressings. leave white steri strips in place. keep incisions clean & dry. Diet Continue normal diet: No Recommended Diet: Bariatric Additional DIET Information: weekly bariatric stage diet advancement as tolerated, as directed Activity Full Activity/No Limits: No Activity Self Limited: Yes Pounds, do NOT lift more than: 10 Other activity limits: no heavy lifting. no strenuous activity. Acute Coronary Syndrome Inclusion Criteria At DC or during hospital stay patient has or had the following: ACS DIAGNOSIS No Discharge Core Measures Meds if any: Prescribed or Continued at Discharge Meds if any: NOT Prescribed or Continued at Discharge Congestive Heart Failure Inclusion Criteria At DC or during hospital stay patient has or had the following: CHF DIAGNOSIS No Discharge Core Measures Meds if any: Prescribed or Continued at Discharge Meds if any: NOT Prescribed or Continued at Discharge Cerebrovascular accident Inclusion Criteria At DC or during hospital stay patient has or had the following: CVA/TIA Diagnosis No Discharge Core Measures Meds if any: Prescribed or Continued at Discharge Meds if any: NOT Prescribed or Continued at Discharge Venous thromboembolism Inclusion Criteria VTE Diagnosis No VTE Type NONE VTE Confirmed by (Test) NONE Discharge Core Measures - Per Current guidelines, there needs to be overlap - treatment for the first 5 days of Warfarin therapy. - If discharged on Warfarin prior to 5 days of - overlap therapy, the patient will need to be - assessed for post discharge needs including - *Post discharge parental anticoagulation - *Warfarin and/or parental anticoagulation education - *Follow up date to check INR post discharge At least 5 days overlap therapy as Inpatient No Meds if any: Prescribed or Continued at Discharge Note: Overlap Therapy is Warfarin and Anticoagulant Meds if any: NOT Prescribed or Continued at Discharge
[2017-12-11 14:22] VITALS: BP 140/82
--- NOTE | 2017-12-11 16:45 | PN- Bariatrics ---
Subjective Subjective: Post op check No acute post operative events reported thus far. Pt has occasional gas discomfort that resolves with position change. No nausea. Is tolerating bariatric stage one presently. Denies chest pain, shortness of breath and difficulty breathing. Is a parapalegic, does not ambulate. Has suprapubic tube in place. Objective Vital Signs and I&Os Vital Signs Date Time Temp Pulse Resp B/P B/P Pulse O2 O2 Flow FiO2 Mean Ox Delivery Rate 12/11 1422 98.3 72 20 140/82 95 Nasal 2.0L Cannula 12/11 1210 96 Nasal 2.0L Cannula 12/11 1210 97.9 80 20 122/70 96 Nasal 2.0L Cannula 12/11 1210 96 Nasal 2.0L Cannula Intake & Output 12/11 1600 12/11 0800 12/11 0000 12/10 1600 12/10 0800 12/10 0000 Intake Total Output Total 1000 Balance -1000 Output, Urine 1000 Patient 281 lb Weight Weight Bed scale Measurement Method Physical Exam: General: Has hx of tbi but is aao x3, no distress Cardiac: RRR, s1s2 Pulm: CTA bilaterally, non-labored respiratory effort Abd: Softly distended, non-tender Extremities: Parapalegic as baseline, calves soft bilaterally Assessment/Plan Assessment/Plan This is a 37 year old male with a h signficant for tbi following accident and parapalegia r/t spinal abscess. Is pod 0, s/p laparosopic sleeve gastrectomy Continue home meds to include effexor, dantrolene, hiprex, baclofen, skelaxin, metoprolol Hep sub q for dvt ppx GI ppx to include iv protonix prn dexamethsone or zofran for nausea prn simethicon for gas Hycet for pain prn with iv morphine prn Incentive spirometry encouraged Bariatric stage 1 diet, npo p mn for possible upper gi series in am Will discuss poc with Dr. Casas Core Measures Venous Thromboembolism VTE Risk Factors Surgery No Mechanical VTE Prophylaxis d/t N/A MechProphylax Ordered No VTE Pharm Prophylaxis d/t NA PharmProphylax ordered
[2017-12-11 21:38] VITALS: BP 124/84
[2017-12-12 06:40] VITALS: BP 122/80
--- NOTE | 2017-12-12 07:36 | PN- General Surgery ---
See Addendum Subjective Subjective: Patient doing fair this am. Had issues with pain, nausea and dry heaves overnight. Denies any other issues or complaints. No other concerns per nursing. Objective Vital Signs and I&Os Vital Signs Date Time Temp Pulse Resp B/P B/P Pulse O2 O2 Flow FiO2 Mean Ox Delivery Rate 12/12 0640 98.6 70 20 122/80 93 Nasal 2.0L Cannula 12/12 0600 95 Nasal 2.0L Cannula 12/12 0000 95 Nasal 2.0L Cannula 12/11 2150 74 124/84 12/11 2138 98.2 74 18 124/84 95 Nasal 2.0L Cannula 12/11 2000 Nasal 2.0L Cannula 12/11 1600 Nasal 2.0L Cannula 12/11 1422 98.3 72 20 140/82 95 Nasal 2.0L Cannula 12/11 1210 96 Nasal 2.0L Cannula 12/11 1210 97.9 80 20 122/70 96 Nasal 2.0L Cannula 12/11 1210 96 Nasal 2.0L Cannula Intake & Output 12/12 0800 12/12 0000 12/11 1600 12/11 0800 12/11 0000 12/10 1600 Intake Total 1095 525 Output Total 990 808 3288 Balance 245 -425 -1000 Intake, IV 1095 375 Intake, Oral 150 Output, Urine 532 296 0216 Patient 291 lb 281 lb Weight Weight Bed scale Bed scale Measurement Method Physical Exam: General: A, A, NAD Abdomen: Obese, soft, nt, nd, incisions covered with gauze and a tegederm, two with serosanginous strikethrough, no surrounding edema, erythema or ecchymosis Extremities: No clubbing, cyanosis or edema Current Medications: Current Medications Sig/Yonas Start time Last Medication Dose Route Stop Time Status Admin Acetaminophen 1,000 MG Q6 12/11 1600 AC 12/12 N/A 1 UNIT IV 12/12 1214 0505 Baclofen 20 MG FOUR TIMES A DAY 12/11 1400 AC 12/11 PO 2151 Cefazolin Sodium 3,000 MG IQ8 12/11 1600 CAN IV 12/12 0001 Cefazolin Sodium 3,000 MG Q8H 12/11 1600 DC 12/11 Sodium Chloride 100 ML IV 12/12 0029 2359 Cefazolin Sodium 3,000 MG ONCE 12/11 0000 DC IV 12/11 2359 Dantrolene Sodium 100 MG TID 12/11 1400 DC PO Dantrolene Sodium 100 MG TID 12/11 1400 AC 12/11 PO 2151 Dextrose/Sodium 1,000 ML Q8H 12/11 1245 AC 12/12 Chloride IV 0448 Docusate Sodium 100 MG TID 12/11 2100 AC 12/11 PO 2151 Heparin Sodium 5,000 UNIT Q8 12/11 1400 AC 12/12 (Porcine) SC 0506 Heparin Sodium 5,000 UNIT ONCE 12/11 0000 DC (Porcine) SC 12/11 2359 Hydrocodone Bitart/ 15 ML Q6P PRN 12/11 1245 AC Acetaminophen PO Hydromorphone HCl 2 MG .STK-MED ONE 12/11 1027 DC IM 12/11 1028 Hydromorphone HCl 2 MG .STK-MED ONE 12/11 1014 DC IM 12/11 1015 Hydromorphone HCl 2 MG .STK-MED ONE 12/11 1002 DC IM 12/11 1003 Metaxalone 800 MG TID 12/11 1400 AC 12/11 PO 2151 Methenamine Hippurate 1 GM BID 12/11 2100 AC 12/11 PO 2151 Metoprolol Tartrate 25 MG BID 12/11 2100 AC 12/11 PO 2150 Morphine Sulfate 2 MG Q2-3 HRS NEEDED.. 12/11 1245 AC 12/11 IV 2152 Ondansetron HCl 4 MG Q6P PRN 12/11 1245 AC 12/11 IV 2203 Pantoprazole Sodium 40 MG ONCE ONE 12/11 1330 DC 12/11 IV 12/11 1331 1443 Pantoprazole Sodium 40 MG DAILY 12/11 0900 AC 12/11 IV 2027 Simethicone 40 MG Q4P PRN 12/11 1330 AC PO Venlafaxine HCl 37.5 MG BID 12/11 2100 AC 12/11 PO 2152 Results Last 48 Hours of Labs: Laboratory Tests 12/11 0751 Coagulation PT (9.4 - 12.5 SEC) 15.8 H INR (0.90 - 1.17) 1.44 H APTT (25 - 37 SEC) 32 Recent Imaging Studies: UGI 12/12/17: Pending Assessment/Plan Assessment/Plan This is a 37 yo male who is POD #1 from Robotic/Laparoscopic Sleeve Gastrectomy OOB to chair if able with paraplegia, IS GI/DVT Px, changed hep sq to lovenox sq PRN analgesia/antiemetics UGI pending Labs look good Bariatric Clears if UGI negative Likely dc tn vs tomorrow Case d/w Dr. Casas Problem List: 1. Morbid obesity 2. S/P laparoscopic sleeve gastrectomy Core Measures Venous Thromboembolism VTE Risk Factors Surgery No Mechanical VTE Prophylaxis d/t N/A MechProphylax Ordered No VTE Pharm Prophylaxis d/t NA PharmProphylax ordered
[2017-12-12 08:49] LABS: ABSOLUTE BASOPHIL COUNT 0.1 /CUMM (0.0-0.2); ABSOLUTE EOSINOPHIL COUNT 0.1 /CUMM (0.0-0.7); ABSOLUTE GRANULOCYTE CT 7.3 /CUMM (1.4-6.5); ABSOLUTE LYMPH COUNT 1.5 /CUMM (1.2-3.4); ABSOLUTE MONOCYTE COUNT 0.8 /CUMM (0.10-0.60); BASOPHIL % 0.9 % (0.0-2.0); EOSINOPHIL % 0.9 % (0-5); GRANULOCYTE % 74.1 % (42.2-75.2); HEMATOCRIT 40.7 % (42-52); MEAN CORPUSCULAR HGB 31.9 PG (27.0-31.0); MEAN CORPUSCULAR HGB CONC 34.6 G/DL (33.0-37.0); MEAN PLATELET VOLUME 9.8 FL (7.4-10.4); PLATELET COUNT 190 /CUMM (130-400); RBC DISTRIBUTION WIDTH 14.1 % (11.5-14.5); RED BLOOD CELL CT 4.43 /CUMM (4.70-6.10); WHITE BLOOD CELL COUNT 9.8 /CUMM (4.8-10.8)
[2017-12-12] MEDS ORDERED: PROTONIX40 M3 PO (12:00)
[2017-12-12] MEDS ORDERED: HYCET 7.5 MG-3473 ML PO (12:00)
--- NOTE | 2017-12-12 13:21 | RADIOLOGY REPORT ---
EXAMINATION: FLUOROSCOPY UPPER GI WITH GASTROGRAFIN WITH KUB CLINICAL INFORMATION: 1 day status post sleeve gastrectomy. Postoperative evaluation. Evaluate for leak or obstruction. COMPARISON: CT scan of the abdomen and pelvis dated 01/21/2017. TECHNIQUE: A preliminary title insurance examiner view of the abdomen was performed on 3 images. A limited Gastrografin upper GI study was performed using 30 ml of Gastroview with the patient in the semiupright position. Multiple (4) spot films and 2 cine fluoroscopy runs were acquired. FINDINGS: The preliminary title insurance examiner view of the abdomen demonstrates an IVC filter in place with tip at the right side of the inferior margin of the L2 vertebral body. Mild gaseous distention of small and large bowel loops is seen. Esophageal distensibility and motility is normal. The GE junction is located below the level of the diaphragm and no GE reflux seen. The remnant stomach is normal with no abnormal distention or contrast leak seen. There is prompt emptying of contrast into the duodenum, which is unremarkable in appearance. FLUOROSCOPY TIME: 22 seconds. IMPRESSION: Unremarkable examination with no evidence of contrast leak or gastric outlet obstruction.
[2017-12-12 14:36] VITALS: BP 105/64
[2017-12-12 22:19] VITALS: BP 128/90
[2017-12-13 06:39] VITALS: BP 130/80
--- NOTE | 2017-12-13 07:59 | PN- Bariatrics ---
Subjective Subjective: Reports some ongoing nausea. Poor PO intake. Willing to try to drink more this morning. Denies dizziness. No shortness of breath. No chest pains. Objective Vital Signs and I&Os Vital Signs Date Time Temp Pulse Resp B/P B/P Pulse O2 O2 Flow FiO2 Mean Ox Delivery Rate 12/13 638 98.8 56 20 130/80 94 CPAP 12/13 599 Room Air 12/12 2219 98.3 66 18 128/90 92 Room Air 12/12 2218 92 CPAP 12/12 2200 Room Air 12/12 1944 128/90 12/12 1734 Room Air Room Air 12/12 1436 98.2 63 16 105/64 92 Room Air 12/12 1400 93 Room Air 12/12 0952 76 128/68 12/12 0800 92 Room Air Intake & Output 12/13 0000 12/12 1600 12/12 0800 12/12 0000 12/11 1600 Intake Total 7397 150 6259 1095 525 Output Total 800 750 750 513 828 2161 Balance 320 -40 340 245 -425 -1000 Intake, IV 3145 095 6717 1095 375 Intake, Oral 120 210 90 150 Output, Urine 800 750 750 083 128 3761 Patient 291 lb 281 lb Weight Weight Bed scale Bed scale Measurement Method Physical Exam: General - alert & oriented. comfortable. no acute distress. Lungs - clear bilaterally. no w/r/r. wearing cpap. Cardiac - s1s2. reg. Abdomen - soft. dressings c/d/i. no drains. - suprapubic catheter in place Extremities - warm bilaterally. athrombics in place. Current Medications: Current Medications Sig/Yonas Start time Last Medication Dose Route Stop Time Status Admin Acetaminophen 1,000 MG Q6 12/11 1600 DC 12/12 N/A 1 UNIT IV 12/12 1214 1139 Baclofen 20 MG FOUR TIMES A DAY 12/11 1400 AC 12/12 PO 1942 Dantrolene Sodium 100 MG TID 12/11 1400 AC 12/12 PO 1943 Dextrose/Sodium 1,000 ML Q8H 12/11 1245 r 12/13 Chloride IV 0347 Docusate Sodium 100 MG TID 12/11 2100 AC 12/12 PO 1446 Enoxaparin Sodium 40 MG DAILY 12/13 0900 DC SC Enoxaparin Sodium 40 MG DAILY 12/12 1330 DC 12/12 SC 1446 Enoxaparin Sodium 40 MG DAILY 12/12 1140 DC SC Heparin Sodium 5,000 UNIT Q8 12/11 1400 DC 12/12 (Porcine) SC 0506 Hydrocodone Bitart/ 15 ML Q6P PRN 12/11 1245 AC Acetaminophen PO Metaxalone 800 MG TID 12/11 1400 AC 12/12 PO 194 Methenamine Hippurate 1 GM BID 12/11 2100 AC 12/12 PO 194 Metoprolol Tartrate 25 MG BID 12/11 2100 AC 12/12 PO 194 Morphine Sulfate 2 MG Q2-3 HRS NEEDED.. 12/11 1245 AC 12/11 IV 215 Ondansetron HCl 4 MG .STK-MED ONE 12/13 2203 DC IM 12/12 220 Ondansetron HCl 4 MG Q6P PRN 12/11 1245 AC 12/12 IV 2205 Pantoprazole Sodium 40 MG DAILY 12/11 0900 AC 12/12 IV 0950 Patient Medication 1 ED ONE ONE 12/12 1645 DC 12/12 Teaching ED 12/12 1646 1742 Rivaroxaban 20 MG DAILY 12/13 0900 UNVr PO Simethicone 40 MG Q4P PRN 12/11 1330 AC PO Venlafaxine HCl 37.5 MG BID 12/11 2100 AC 12/12 PO 194 Results Last 48 Hours of Labs: Laboratory Tests 12/12 826 Chemistry Sodium (137 - 145 mmol/L) 145 Potassium (3.5 - 5.1 mmol/L) 3.9 Chloride (98 - 107 mmol/L) 106 Carbon Dioxide (22 - 30 mmol/L) 28 Anion Gap (5 - 16) 11 BUN (9 - 20 mg/dL) 4 L Creatinine (0.7 - 1.2 mg/dL) 0.6 L Estimated GFR (>60 ml/min) > 60 BUN/Creatinine Ratio (7 - 25 %) 6.7 L Glucose (65 - 99 mg/dL) 149 H Magnesium (1.6 - 2.3 mg/dL) 1.9 Hematology CBC w Diff NO MAN DIFF REQ WBC (4.8 - 10.8 /CUMM) 9.8 RBC (4.70 - 6.10 /CUMM) 4.43 L Hgb (14.0 - 18.0 G/DL) 14.1 Hct (42 - 52 %) 40.7 L MCV (80.0 - 94.0 FL) 92.0 MCH (27.0 - 31.0 PG) 31.9 H MCHC (33.0 - 37.0 G/DL) 34.6 RDW (11.5 - 14.5 %) 14.1 Plt Count (130 - 400 /CUMM) 190 MPV (7.4 - 10.4 FL) 9.8 Gran % (42.2 - 75.2 %) 74.1 Lymphocytes % (20.5 - 51.1 %) 15.7 L Monocytes % (1.7 - 9.3 %) 8.4 Eosinophils % (0 - 5 %) 0.9 Basophils % (0.0 - 2.0 %) 0.9 Absolute Granulocytes (1.4 - 6.5 /CUMM) 7.3 H Absolute Lymphocytes (1.2 - 3.4 /CUMM) 1.5 Absolute Monocytes (0.10 - 0.60 /CUMM) 0.8 H Absolute Eosinophils (0.0 - 0.7 /CUMM) 0.1 Absolute Basophils (0.0 - 0.2 /CUMM) 0.1 Assessment/Plan Assessment/Plan This is a 37 yo male with hx paraplegia, htn, suprapubic catheter, hx clots, is POD #2 s/p lap sleeve gastrectomy encouraged stage 1 diet. decrease iv fluid rate anti-emetics prn oob to chair restart xarelto today. d/c lovenox protonix - gi ppx home meds ordered likely d/c home later today if tolerating stage 1 bariatric diet will d/w Core Measures Venous Thromboembolism VTE Risk Factors Surgery No Mechanical VTE Prophylaxis d/t N/A MechProphylax Ordered No VTE Pharm Prophylaxis d/t NA PharmProphylax ordered
[2017-12-13] MEDS ORDERED: HYCET 7.5 MG-3473 ML PO (08:21)
[2017-12-13 13:47] VITALS: BP 119/71
== END 2017-12-13 15:46 | disposition home health service (06) | DRG 403 ==
LOC: SDA 04:12 → 2NB 04:12 → ENRESERV 10:53 → ENTRNSPT 11:52 → EDTRNSPTSTS 11:59 → EDTRNSPT 11:59 → CMPTRNSPT 12:15 → 2NB 12:19 → ENPENDDIS 12-13 09:07 → 2NB 12-13 15:46
PROVIDERS: Physician Assistant; Surgery
PROC: 0DB64Z3 Excision of Stomach, Percutaneous Endoscopic Approach, Vertical (ICD-10-PCS; principal; 2017-12-11)
DX: E66.01 Morbid (severe) obesity due to excess calories (principal); Z68.41 Body mass index [BMI] 40.0-44.9, adult; G47.33 Obstructive sleep apnea (adult) (pediatric); G82.20 Paraplegia, unspecified; Z87.820 Personal history of traumatic brain injury; I10 Essential (primary) hypertension; Z86.718 Personal history of other venous thrombosis and embolism; Z79.01 Long term (current) use of anticoagulants; K21.9 Gastro-esophageal reflux disease without esophagitis; R32 Unspecified urinary incontinence; Z88.5 Allergy status to narcotic agent
CPT/HCPCS: 2NBP; 36592; 74240; 82436; 88307; J0131; J0690; J1644; J1650; J2405; J3490; J7042